=== PATIENT | male | born 1980 | race Caucasian/White ===

== ENCOUNTER 2020-12-24 15:44 | Inpatient (IN) | payer SELFPAY ==
[~2020-12-24] VITALS: Ht 165.1 cm; Wt 70.9 kg
[2020-12-24 16:39] LABS: HEMATOCRIT. 28.7 % (42.0-52.0); MEAN CORPUSCULAR HEMOGLOBIN 38.2 pg (28.0-32.0); MEAN CORPUSCULAR VOLUME 109.7 fL (80.0-94.0); RED BLOOD CELL COUNT 2.62 mill/uL (4.7-6.1); RED CELL DISTRIBUTION WIDTH 16.5 % (11.6-14.6)
[2020-12-24 16:47] LABS: CHLORIDE 96 mEq/L (98-107)
[2020-12-24 16:50] LABS: INR 1.4; PROTHROMBIN TIME 14.8 sec (9.6-11.0)
[2020-12-24 16:51] LABS: ETHANOL BLOOD 20 mg/dL
[2020-12-24 17:07] LABS: MEAN PLATELET VOLUME 7.1 fl (7.4-10.4); PLATELET 168 x1000/uL (130-400); PLATELET ESTIMATE NORMAL
[2020-12-24] MEDS ORDERED: POTASSIUM BICARB/CIT ACID 25 MEQ TABLET.EFF PO NR (18:15)
[2020-12-24] MEDS ORDERED: KCL 20MEQ/100ML PREMIX 100 ML IV NR ×2 (18:30→21:00)
[2020-12-24] MEDS ORDERED: MAGNESIUM/ALUMINUM HYDROXIDE/SIMETHICONE 30ML UDC PO PRN (20:45)
[2020-12-24] MEDS ORDERED: NITROGLYCERIN 0.4MG TABLET SL SL PRN (20:45)
[2020-12-24] MEDS ORDERED: ONDANSETRON HCL 4MG/2ML INJ IV PRN (20:45)
[2020-12-24] MEDS ORDERED: CLONIDINE 0.1MG TABLET PO PRN (20:45)
[2020-12-24] MEDS ORDERED: IPRATROPIUM/ALBUTEROL 0.5-3(2.5)MG/3ML NEB NEB PRN (20:45)
[2020-12-24] MEDS ORDERED: GUAIFENESIN 200MG/10ML SUGAR FREE UDC PO PRN (20:45)
[2020-12-24] MEDS ORDERED: DOCUSATE SODIUM 100MG CAPSULE PO PRN (20:45)
[2020-12-24] MEDS ORDERED: ACETAMINOPHEN 325MG TABLET PO PRN ×2 (20:45)
[2020-12-24] MEDS ORDERED: ZOLPIDEM TARTRATE 5MG TABLET PO PRN (20:45)
[2020-12-24] MEDS ORDERED: PHYTONADIONE 10 MG in DEXTROSE 5% WATER 50 ML SUBCUT ONE (20:45)
[2020-12-24] MEDS ORDERED: POTASSIUM CHLORIDE 20MEQ TABLET SR PO NR (21:00)
[2020-12-24] MEDS ORDERED: PHYTONADIONE 10MG/ML AMP SUBCUT NR (21:15)
[2020-12-24 22:03] LABS: TOTAL IRON BINDING CAPACITY 223 ug/dL (250-450)
[2020-12-24 22:21] LABS: FOLIC ACID (FOLATE) SERUM 11.2 ng/mL (>5.38)
[2020-12-24] MEDS ORDERED: IOHEXOL-300 100 ML BOTTLE ONE (22:56)
[2020-12-24 23:00] VITALS: BP 104/58
[2020-12-24] MEDS: ASCORBIC ACID 500 MG TABLET PO SCH (23:44)
[2020-12-24] MEDS: FAMOTIDINE 20MG TABLET PO SCH (23:44)
[2020-12-25] MEDS ORDERED: KCL 20MEQ/100ML PREMIX 100 ML IV NR (01:00)
[2020-12-25 07:16] LABS: HEMATOCRIT. 27.3 % (42.0-52.0); HEMOGLOBIN. 9.2 g/dL (14.0-18.0); LYMPHOCYTES % 27.3 % (20.0-50.0); MEAN CORPUSCULAR VOLUME 110.2 fL (80.0-94.0); MEAN PLATELET VOLUME 7.3 fl (7.4-10.4); MONOCYTES % 14.7 % (2.0-8.0); PLATELET 146 x1000/uL (130-400); RED BLOOD CELL COUNT 2.47 mill/uL (4.7-6.1); RED CELL DISTRIBUTION WIDTH 16.3 % (11.6-14.6)
[2020-12-25 07:18] LABS: INR 1.6; PARTIAL THROMBOPLASTIN TIME 42.5 sec (23.4-31.0); PROTHROMBIN TIME 16.1 sec (9.6-11.0)
[2020-12-25 07:34] LABS: CHLORIDE 100 mEq/L (98-107)
[2020-12-25 07:43] LABS: CLARITY URINE CLEAR (CLEAR); COLOR URINE DARK YELLOW (YELLOW); KETONES URINE NEGATIVE (NEGATIVE); LEUKOCYTE ESTERASE URINE NEGATIVE (NEGATIVE); NITRITE URINE NEGATIVE (NEGATIVE); OCCULT BLOOD URINE NEGATIVE (NEGATIVE); PROTEIN URINE NEGATIVE (NEGATIVE); SPECIFIC GRAVITY URINE 1.027 (1.005-1.030)
[2020-12-25 07:44] LABS: PHOSPHORUS 2.9 mg/dL (2.5-4.9)
[2020-12-25 07:48] LABS: *AMPHETAMINES SCREEN URINE NEGATIVE (NEGATIVE); *BENZODIAZEPINES SCREEN URINE NEGATIVE (NEGATIVE); *COCAINE SCREEN URINE NEGATIVE (NEGATIVE); METHADONE URINE SCREEN NEGATIVE (NEGATIVE)
[2020-12-25 07:52] LABS: *BARBITURATES SCREEN URINE NEGATIVE (NEGATIVE); CANNABINOID URINE SCREEN NEGATIVE (NEGATIVE); OPIATES URINE SCREEN NEGATIVE (NEGATIVE); PHENCYCLIDINE URINE SCREEN NEGATIVE (NEGATIVE)
[2020-12-25 08:00] VITALS: BP 107/64
[2020-12-25] MEDS ORDERED: LIDOCAINE HCL 1% 20ML VIAL (Pyxis) INJ ONE (09:43)
[2020-12-25] MEDS ORDERED: SODIUM BICARBONATE 4% (2.4MEQ) 5ML VIAL IV ONE (09:44)
[2020-12-25] MEDS: FAMOTIDINE 20MG TABLET PO SCH ×2 (11:16→20:38)
[2020-12-25] MEDS: ASCORBIC ACID 500 MG TABLET PO SCH ×2 (11:16→20:38)
[2020-12-25] MEDS: ZINC SULFATE 220 MG ( 50 ) CAPSULE PO SCH (11:16)
[2020-12-25] MEDS: CHOLECALCIFEROL (D3) 1000 UNIT TABLET PO SCH (11:16)
[2020-12-25 12:00] VITALS: BP 93/49
[2020-12-25 14:32] LABS: PLATELET ESTIMATE NORMAL
[2020-12-25 16:00] VITALS: BP 97/63
[2020-12-25 20:00] VITALS: BP 90/43
[2020-12-26] VITALS: BP 89/42
[2020-12-26 04:00] VITALS: BP 95/46
[2020-12-26 08:00] VITALS: BP 96/60
[2020-12-26] MEDS: CHOLECALCIFEROL (D3) 1000 UNIT TABLET PO SCH (08:49)
[2020-12-26] MEDS: FAMOTIDINE 20MG TABLET PO SCH (08:49)
[2020-12-26] MEDS: ZINC SULFATE 220 MG ( 50 ) CAPSULE PO SCH (08:49)
[2020-12-26] MEDS: ASCORBIC ACID 500 MG TABLET PO SCH (08:50)
[2020-12-26 13:27] LABS: CHLORIDE 101 mEq/L (98-107)
[2020-12-26 13:44] VITALS: BP 102/60
== END 2020-12-26 14:18 | disposition home or self-care (01) ==
LOC: ER 15:44 → 5WST 19:41 → ENRESERV 21:31
PROVIDERS: ADMIT Internal Medicine; ATTEND Internal Medicine
PROC: 0W9G3ZZ Drainage of Peritoneal Cavity, Percutaneous Approach (ICD-10-PCS; principal; 2020-12-25)
DX: R18.8 Other ascites (principal); K74.60 Unspecified cirrhosis of liver; E87.1 Hypo-osmolality and hyponatremia; E87.6 Hypokalemia; F17.200 Nicotine dependence, unspecified, uncomplicated; F10.20 Alcohol dependence, uncomplicated; D64.9 Anemia, unspecified; R79.1 Abnormal coagulation profile; Y90.1 Blood alcohol level of 20-39 mg/100 ml; Z20.822 Contact with and (suspected) exposure to COVID-19
CPT/HCPCS: 36415; 49083; 74177; 80048; 80053; 80305; 80320; 81003; 82607; 82746; 83540; 83550; 83735; 83880; 84100; 84484; 85025; 87426; 93005; 93970; 99291; J3430; J3480; J3490; Q9967; G0480

== ENCOUNTER 2021-02-10 20:18 | Inpatient (IN) | payer MEDICAID, OTHER ==
[~2021-02-10] VITALS: Ht 165.1 cm; Wt 119.3 kg
[2021-02-10 22:39] LABS: BASOPHILS % 1.1 % (0.0-2.0); HEMATOCRIT. 28.8 % (42.0-52.0); HEMOGLOBIN. 10.1 g/dL (14.0-18.0); MEAN CORPUSCULAR HEMOGLOBIN 39.2 pg (28.0-32.0); MEAN CORPUSCULAR VOLUME 112.3 fL (80.0-94.0); MEAN PLATELET VOLUME 6.3 fl (7.4-10.4); MONOCYTES % 13.6 % (2.0-8.0); NEUTROPHILS % 49.3 % (40.0-76.0); PLATELET 183 x1000/uL (130-400); RED BLOOD CELL COUNT 2.57 mill/uL (4.7-6.1); RED CELL DISTRIBUTION WIDTH 13.3 % (11.6-14.6)
[2021-02-10 22:44] LABS: CHLORIDE 108 mEq/L (98-107)
[2021-02-10 22:46] LABS: INR 1.2; PROTHROMBIN TIME 12.7 sec (9.6-11.0)
[2021-02-10 22:53] LABS: PLATELET ESTIMATE NORMAL
[2021-02-11 02:35] VITALS: BP 118/77
[2021-02-11 04:00] VITALS: BP 118/77
[2021-02-11] MEDS ORDERED: ACETAMINOPHEN 325MG TABLET PO PRN (06:00)
[2021-02-11] MEDS ORDERED: IPRATROPIUM/ALBUTEROL 0.5-3(2.5)MG/3ML NEB HHN PRN (06:00)
[2021-02-11] MEDS ORDERED: CLONIDINE 0.1MG TABLET PO PRN (06:00)
[2021-02-11] MEDS ORDERED: MAGNESIUM/ALUMINUM HYDROXIDE/SIMETHICONE 30ML UDC PO PRN (06:00)
[2021-02-11] MEDS ORDERED: GUAIFENESIN 200MG/10ML SUGAR FREE UDC PO PRN (06:00)
[2021-02-11] MEDS ORDERED: MORPHINE SULFATE 2 MG/ML CPJ (NOT FOR IM USE) IV PRN (06:00)
[2021-02-11] MEDS ORDERED: ONDANSETRON HCL 4MG/2ML INJ IV PRN (06:00)
[2021-02-11] MEDS ORDERED: LORAZEPAM 2MG/ML CPJ IV PRN (06:00)
[2021-02-11] MEDS ORDERED: HYDRALAZINE 20MG/ML VIAL IV PRN (06:00)
[2021-02-11] MEDS ORDERED: HYDRALAZINE 10 MG in DEXTROSE 5% WATER 50 ML IV PRN (06:00)
[2021-02-11] MEDS ORDERED: DOCUSATE SODIUM 100MG CAPSULE PO PRN (06:00)
[2021-02-11] MEDS ORDERED: DIPHENHYDRAMINE 50MG/ML VIAL IV PRN (06:00)
[2021-02-11] MEDS ORDERED: HYDROCODONE/ACETAMINOPHEN 5/325MG TABLET PO PRN (06:00)
[2021-02-11 08:00] VITALS: BP 122/66
[2021-02-11 09:57] LABS: CHLORIDE 109 mEq/L (98-107)
[2021-02-11] MEDS ORDERED: KCL 20MEQ/100ML PREMIX 100 ML IV NR (11:30)
[2021-02-11 12:00] VITALS: BP 120/70
[2021-02-11] MEDS ORDERED: SODIUM BICARBONATE 4% (2.4MEQ) 5ML VIAL IV ONE (13:53)
[2021-02-11] MEDS ORDERED: LIDOCAINE HCL 1% 20ML VIAL (Pyxis) INJ ONE (13:53)
[2021-02-11] MEDS: SODIUM CHLORIDE 0.9% INJ 3ML FLUSH IVF SCH ×2 (14:00→23:52)
[2021-02-11 16:00] VITALS: BP 114/48
[2021-02-11 20:00] VITALS: BP 96/60
[2021-02-12] VITALS: BP 95/59
[2021-02-12 04:00] VITALS: BP 95/54
[2021-02-12 05:19] LABS: CHLORIDE 110 mEq/L (98-107)
[2021-02-12 05:29] LABS: BASOPHILS % 1.3 % (0.0-2.0); EOSINOPHILS % 2.7 % (0.0-5.0); HEMATOCRIT. 28.5 % (42.0-52.0); HEMOGLOBIN. 9.7 g/dL (14.0-18.0); LYMPHOCYTES % 40.9 % (20.0-50.0); MEAN CORPUSCULAR HEMOGLOBIN 38.5 pg (28.0-32.0); MEAN CORPUSCULAR VOLUME 113.7 fL (80.0-94.0); MEAN PLATELET VOLUME 6.5 fl (7.4-10.4); MONOCYTES % 11.9 % (2.0-8.0); NEUTROPHILS % 43.2 % (40.0-76.0); PLATELET 141 x1000/uL (130-400); RED CELL DISTRIBUTION WIDTH 13.4 % (11.6-14.6)
[2021-02-12] MEDS: SODIUM CHLORIDE 0.9% INJ 3ML FLUSH IVF SCH (06:43)
[2021-02-12 08:00] VITALS: BP 91/61
[2021-02-12 11:26] VITALS: BP 94/61
[2021-02-12 12:08] VITALS: BP 97/60
== END 2021-02-12 12:50 | disposition home or self-care (01) ==
LOC: ER 20:18 → 6EST 02-11 01:08 → ENRESERV 02-11 01:50
PROVIDERS: ADMIT Internal Medicine; ATTEND Internal Medicine
PROC: 0W9G3ZZ Drainage of Peritoneal Cavity, Percutaneous Approach (ICD-10-PCS; principal; 2021-02-11)
DX: K74.60 Unspecified cirrhosis of liver (principal); E43 Unspecified severe protein-calorie malnutrition; R18.8 Other ascites; D64.9 Anemia, unspecified; E87.6 Hypokalemia; Z20.822 Contact with and (suspected) exposure to COVID-19; F10.21 Alcohol dependence, in remission; F17.200 Nicotine dependence, unspecified, uncomplicated; K80.20 Calculus of gallbladder without cholecystitis without obstruction; Z68.41 Body mass index [BMI] 40.0-44.9, adult
CPT/HCPCS: 36415; 49083; 74176; 80048; 80053; 84484; 85025; 87426; 93005; 99285; J3480; J3490

== ENCOUNTER 2021-03-15 11:38 | Emergency (ER) | payer MEDICAID ==
[~2021-03-15] VITALS: Ht 167.6 cm; Wt 89.0 kg
[2021-03-15 15:08] VITALS: BP 111/81
[2021-03-15 15:08] LABS: CHLORIDE 111 mEq/L (98-107)
[2021-03-15 15:13] LABS: ETHANOL BLOOD < 10 mg/dL
[2021-03-15 15:18] LABS: BASOPHILS % 1.2 % (0.0-2.0); EOSINOPHILS % 2.2 % (0.0-5.0); HEMATOCRIT. 36.8 % (42.0-52.0); HEMOGLOBIN. 12.9 g/dL (14.0-18.0); LYMPHOCYTES % 42.2 % (20.0-50.0); MEAN CORPUSCULAR HEMOGLOBIN 36.8 pg (28.0-32.0); MEAN CORPUSCULAR VOLUME 105.2 fL (80.0-94.0); MONOCYTES % 9.7 % (2.0-8.0); NEUTROPHILS % 44.7 % (40.0-76.0); PLATELET 201 x1000/uL (130-400); RED CELL DISTRIBUTION WIDTH 12.9 % (11.6-14.6)
== END 2021-03-15 15:50 | disposition home or self-care (01) ==
LOC: ER 11:38
DX: K70.31 Alcoholic cirrhosis of liver with ascites (principal); G89.29 Other chronic pain; D64.9 Anemia, unspecified
CPT/HCPCS: 36415; 80053; 80320; 85025; 99283; G0480

== ENCOUNTER 2021-03-16 08:25 | Emergency (ER) | payer MEDICAID ==
[~2021-03-16] VITALS: Ht 165.1 cm; Wt 91.0 kg
[2021-03-16 09:14] LABS: BASOPHILS % 1.8 % (0.0-2.0); EOSINOPHILS % 3.2 % (0.0-5.0); HEMATOCRIT. 35.2 % (42.0-52.0); HEMOGLOBIN. 11.8 g/dL (14.0-18.0); LYMPHOCYTES % 39.3 % (20.0-50.0); MEAN CORPUSCULAR HEMOGLOBIN 35.5 pg (28.0-32.0); MEAN CORPUSCULAR VOLUME 106.1 fL (80.0-94.0); MEAN PLATELET VOLUME 6.9 fl (7.4-10.4); MONOCYTES % 12.8 % (2.0-8.0); NEUTROPHILS % 42.9 % (40.0-76.0); PLATELET 219 x1000/uL (130-400); RED BLOOD CELL COUNT 3.31 mill/uL (4.7-6.1); RED CELL DISTRIBUTION WIDTH 13.1 % (11.6-14.6)
[2021-03-16 09:19] LABS: CHLORIDE 110 mEq/L (98-107)
[2021-03-16 09:23] LABS: INR 1.2; PROTHROMBIN TIME 12.7 sec (9.6-11.0)
[2021-03-16] MEDS ORDERED: LIDOCAINE HCL 1% 20ML VIAL (Pyxis) INJ ONE (13:53)
[2021-03-16] MEDS ORDERED: SODIUM BICARBONATE 4% (2.4MEQ) 5ML VIAL IV ONE (13:53)
[2021-03-16 15:30] VITALS: BP 127/86
== END 2021-03-16 15:57 | disposition home or self-care (01) ==
LOC: ER 08:25
DX: R18.8 Other ascites (principal); I49.9 Cardiac arrhythmia, unspecified; Z20.822 Contact with and (suspected) exposure to COVID-19
CPT/HCPCS: 36415; 49083; 80053; 85025; 85610; 87426; 89050; 93005; 99285; J3490; Z7610

== ENCOUNTER 2021-04-07 08:58 | Emergency (ER) | payer MEDICAID ==
[~2021-04-07] VITALS: Ht 165.1 cm; Wt 82.0 kg
[2021-04-07 09:49] LABS: BASOPHILS % 1.3 % (0.0-2.0); HEMATOCRIT. 37.7 % (42.0-52.0); HEMOGLOBIN. 12.7 g/dL (14.0-18.0); LYMPHOCYTES % 35.5 % (20.0-50.0); MEAN CORPUSCULAR HEMOGLOBIN 34.5 pg (28.0-32.0); MEAN CORPUSCULAR VOLUME 102.1 fL (80.0-94.0); MEAN PLATELET VOLUME 6.6 fl (7.4-10.4); MONOCYTES % 12.1 % (2.0-8.0); NEUTROPHILS % 49.1 % (40.0-76.0); PLATELET 199 x1000/uL (130-400); RED BLOOD CELL COUNT 3.69 mill/uL (4.7-6.1); RED CELL DISTRIBUTION WIDTH 13.1 % (11.6-14.6)
[2021-04-07 09:56] LABS: CHLORIDE 100 mEq/L (98-107)
[2021-04-07 10:00] LABS: INR 1.1; PROTHROMBIN TIME 11.7 sec (9.6-11.0)
[2021-04-07] MEDS ORDERED: LIDOCAINE HCL 1% 20ML VIAL (Pyxis) INJ ONE (14:04)
[2021-04-07] MEDS ORDERED: SODIUM BICARBONATE 4% (2.4MEQ) 5ML VIAL IV ONE (14:04)
[2021-04-07 17:13] VITALS: BP 92/57
== END 2021-04-07 17:14 | disposition admitted as inpatient to this hospital (09) ==
LOC: ER 08:58
DX: K70.31 Alcoholic cirrhosis of liver with ascites (principal); N18.6 End stage renal disease; D64.9 Anemia, unspecified; E87.1 Hypo-osmolality and hyponatremia; Z20.822 Contact with and (suspected) exposure to COVID-19
CPT/HCPCS: 36415; 49083; 80053; 83880; 85025; 85610; 85730; 87426; 93005; 99285; C9803; J3490; U0003; U0005; Z7610

== ENCOUNTER 2021-04-23 07:40 | Emergency (ER) | payer MEDICAID ==
[~2021-04-23] VITALS: Ht 167.6 cm; Wt 70.0 kg
[2021-04-23 10:35] LABS: BASOPHILS % 1.3 % (0.0-2.0); EOSINOPHILS % 1.9 % (0.0-5.0); HEMATOCRIT. 36.5 % (42.0-52.0); HEMOGLOBIN. 12.2 g/dL (14.0-18.0); MEAN CORPUSCULAR HEMOGLOBIN 34.1 pg (28.0-32.0); MEAN CORPUSCULAR VOLUME 102.2 fL (80.0-94.0); MEAN PLATELET VOLUME 6.4 fl (7.4-10.4); MONOCYTES % 10.3 % (2.0-8.0); NEUTROPHILS % 49.5 % (40.0-76.0); PLATELET 205 x1000/uL (130-400); RED BLOOD CELL COUNT 3.57 mill/uL (4.7-6.1); RED CELL DISTRIBUTION WIDTH 13.4 % (11.6-14.6)
[2021-04-23 10:44] LABS: INR 1.1; PARTIAL THROMBOPLASTIN TIME 29.9 sec (23.4-31.0); PROTHROMBIN TIME 11.9 sec (9.6-11.0)
[2021-04-23] MEDS ORDERED: SODIUM BICARBONATE 4% (2.4MEQ) 5ML VIAL IV ONE (10:57)
[2021-04-23] MEDS ORDERED: LIDOCAINE HCL 1% 20ML VIAL (Pyxis) INJ ONE (10:57)
[2021-04-23] MEDS ORDERED: SODIUM CHLORIDE 0.9% 250 ML IV ONE (13:30)
[2021-04-23 14:44] VITALS: BP 90/52
== END 2021-04-23 14:45 | disposition home or self-care (01) ==
LOC: ER 07:40
DX: R18.8 Other ascites (principal); D64.9 Anemia, unspecified; F10.229 Alcohol dependence with intoxication, unspecified; Y90.0 Blood alcohol level of less than 20 mg/100 ml; Z20.822 Contact with and (suspected) exposure to COVID-19
CPT/HCPCS: 36415; 49083; 85025; 85610; 85730; 87426; 96360; 99285; J3490; J7050; Z7610

== ENCOUNTER 2021-05-27 08:40 | Emergency (ER) | payer MEDICAID ==
[~2021-05-27] VITALS: Ht 165.1 cm; Wt 89.0 kg
[2021-05-27 11:25] LABS: BASOPHILS % 2.3 % (0.0-2.0); EOSINOPHILS % 3.8 % (0.0-5.0); HEMATOCRIT. 34.4 % (42.0-52.0); HEMOGLOBIN. 11.6 g/dL (14.0-18.0); LYMPHOCYTES % 42.3 % (20.0-50.0); MEAN CORPUSCULAR VOLUME 97.9 fL (80.0-94.0); MEAN PLATELET VOLUME 6.6 fl (7.4-10.4); MONOCYTES % 10.8 % (2.0-8.0); NEUTROPHILS % 40.8 % (40.0-76.0); PLATELET 227 x1000/uL (130-400); RED BLOOD CELL COUNT 3.52 mill/uL (4.7-6.1); RED CELL DISTRIBUTION WIDTH 14.1 % (11.6-14.6)
[2021-05-27 11:33] LABS: CHLORIDE 109 mEq/L (98-107)
[2021-05-27 11:35] LABS: INR 1.1; PROTHROMBIN TIME 11.6 sec (9.6-11.0)
[2021-05-27] MEDS ORDERED: LIDOCAINE HCL 1% 30ML VIAL (10MG/ML) ONE (13:17)
[2021-05-27] MEDS ORDERED: SODIUM BICARBONATE 4% (2.4MEQ) 5ML VIAL IV ONE (13:18)
[2021-05-27 17:52] VITALS: BP 105/73
== END 2021-05-27 17:54 | disposition left against medical advice (07) ==
LOC: ER 08:40 → EDBEDREQTM 16:29 → EDBEDREQ 16:29 → ER 17:54 → CANBEDREQ 21:45
DX: J90 Pleural effusion, not elsewhere classified (principal); R18.8 Other ascites; N18.9 Chronic kidney disease, unspecified; D63.1 Anemia in chronic kidney disease; K74.60 Unspecified cirrhosis of liver; Z20.822 Contact with and (suspected) exposure to COVID-19
CPT/HCPCS: 36415; 49083; 71045; 80053; 83690; 85025; 85610; 87426; 93005; 99285; J3490; Z7610

== ENCOUNTER 2021-06-17 07:24 | Emergency (ER) | payer MEDICAID ==
[~2021-06-17] VITALS: Ht 167.6 cm; Wt 78.0 kg
[2021-06-17 08:16] LABS: BASOPHILS % 2.1 % (0.0-2.0); HEMATOCRIT. 31.1 % (42.0-52.0); HEMOGLOBIN. 10.5 g/dL (14.0-18.0); LYMPHOCYTES % 44.8 % (20.0-50.0); MEAN CORPUSCULAR HEMOGLOBIN 33.6 pg (28.0-32.0); MEAN CORPUSCULAR VOLUME 99.6 fL (80.0-94.0); MEAN PLATELET VOLUME 7.4 fl (7.4-10.4); MONOCYTES % 14.5 % (2.0-8.0); NEUTROPHILS % 31.6 % (40.0-76.0); PLATELET 197 x1000/uL (130-400); RED BLOOD CELL COUNT 3.12 mill/uL (4.7-6.1); RED CELL DISTRIBUTION WIDTH 14.7 % (11.6-14.6)
[2021-06-17 08:22] LABS: CHLORIDE 110 mEq/L (98-107)
[2021-06-17 08:23] LABS: INR 1.1; PROTHROMBIN TIME 11.6 sec (9.6-11.0)
[2021-06-17] MEDS ORDERED: SODIUM BICARBONATE 4% (2.4MEQ) 5ML VIAL IV ONE (10:52)
[2021-06-17] MEDS ORDERED: LIDOCAINE HCL 1% 30ML VIAL (10MG/ML) ONE (10:52)
[2021-06-17 12:30] VITALS: BP 107/75
== END 2021-06-17 12:54 | disposition home or self-care (01) ==
LOC: ER 07:24
DX: R18.8 Other ascites (principal); K74.60 Unspecified cirrhosis of liver; D64.9 Anemia, unspecified
CPT/HCPCS: 36415; 49083; 80053; 83690; 85025; 85610; 87426; 99285; J3490; Z7610

== ENCOUNTER 2021-07-16 07:57 | Emergency (ER) | payer MEDICAID ==
[~2021-07-16] VITALS: Ht 165.1 cm; Wt 73.0 kg
[2021-07-16 08:56] LABS: BASOPHILS % 2.7 % (0.0-2.0); EOSINOPHILS % 8.5 % (0.0-5.0); HEMATOCRIT. 33.5 % (42.0-52.0); LYMPHOCYTES % 39.1 % (20.0-50.0); MEAN CORPUSCULAR HEMOGLOBIN 32.6 pg (28.0-32.0); MEAN CORPUSCULAR VOLUME 99.1 fL (80.0-94.0); MEAN PLATELET VOLUME 7.5 fl (7.4-10.4); MONOCYTES % 11.3 % (2.0-8.0); NEUTROPHILS % 38.4 % (40.0-76.0); PLATELET 226 x1000/uL (130-400); RED BLOOD CELL COUNT 3.38 mill/uL (4.7-6.1); RED CELL DISTRIBUTION WIDTH 14.6 % (11.6-14.6)
[2021-07-16 09:04] LABS: CHLORIDE 109 mEq/L (98-107)
[2021-07-16 09:05] LABS: INR 1.1; PROTHROMBIN TIME 11.5 sec (9.6-11.0)
[2021-07-16] MEDS ORDERED: LIDOCAINE HCL 1% 10 MG/ML 10ML VIAL ONE (11:20)
[2021-07-16] MEDS ORDERED: SODIUM BICARBONATE 4% (2.4MEQ) 5ML VIAL IV ONE (11:20)
[2021-07-16 13:22] VITALS: BP 105/80
== END 2021-07-16 13:24 | disposition home or self-care (01) ==
LOC: ER 07:57
DX: R18.8 Other ascites (principal); F10.229 Alcohol dependence with intoxication, unspecified; Y90.0 Blood alcohol level of less than 20 mg/100 ml; D64.9 Anemia, unspecified; Z20.822 Contact with and (suspected) exposure to COVID-19
CPT/HCPCS: 36415; 49083; 80053; 85025; 85610; 87426; 93005; 99285; J3490; Z7610